=== PATIENT | male | born 1990 | race Caucasian/White ===

== ENCOUNTER 2017-04-20 15:50 | Emergency (ER) | payer SELFPAY ==
[2017-04-20 16:32] VITALS: BMI 23.2
[2017-04-20 16:36] VITALS: TEMP 98.2
--- NOTE | 2017-04-20 17:10 | C.PDOC ---
History Of Present Illness L CHEST PAIN X 2 WEEKS. INTERMIT NOW MORE INTENSE. NON EXERTIONAL, NO ASSOC SOB / CASTRO, DIZZY NV. QUIT SMOKING "MANY YEARS AGO" NO FEVER EXAM NEG Time Seen by Provider: 04/20/17 17:03 Chief Complaint (Nursing): Chest Pain History Per: Patient History/Exam Limitations: no limitations Onset/Duration Of Symptoms: Days (2 weeks) Current Symptoms Are (Timing): Still Present Past Medical History Reviewed: Historical Data, Nursing Documentation, Vital Signs Vital Signs: Last Vital Signs Temp 98.2 F 04/20/17 16:32 Pulse 71 04/20/17 16:32 Resp 20 04/20/17 16:32 BP 99/63 L 04/20/17 16:32 Pulse Ox 99 04/20/17 17:16 Family History: States: No Known Family Hx - Social History Hx Alcohol Use: No Hx Substance Use: No - Immunization History Hx Tetanus Toxoid Vaccination: No Hx Influenza Vaccination: No Hx Pneumococcal Vaccination: No Review Of Systems Except As Marked, All Systems Reviewed And Found Negative. Constitutional: Negative for: Fever Cardiovascular: Positive for: Chest Pain (left chest pain). Negative for: Palpitations Respiratory: Negative for: Shortness of Breath Neurological: Negative for: Weakness, Numbness Physical Exam - Physical Exam Appears: Non-toxic, No Acute Distress Skin: Warm, Dry, No Rash Oral Mucosa: Moist Lips: Normal Appearing Cardiovascular: Rhythm Regular, No Murmur Respiratory: Normal Breath Sounds, No Rales, No Rhonchi, No Stridor, No Wheezing Extremity: Normal ROM, No Swelling Neurological/Psych: Oriented x3, Normal Speech ED Course And Treatment ECG: Interpreted By Ca ECG Rhythm: Sinus Rhythm ECG Interpretation: Normal Rate From EC (BPM) O2 Sat by Pulse Oximetry: 99 (RA) Pulse Ox Interpretation: Normal - Radiology CXR: Interpreted by Ca CXR Interpretation: Yes: No Acute Disease Medical Decision Making Medical Decision Making: PLAN: * CXR * Flexeril PO * Motrin PO Disposition Counseled Patient/Family Regarding: Studies Performed, Diagnosis, Need For Followup, Rx Given - Disposition Referrals: [facility] [Outside] [facility] [Outside] Disposition: HOME/ ROUTINE Disposition Time: 17:38 Condition: IMPROVED Instructions: Noncardiac Chest Pain (ED) Forms: [employer] ([place]) - Clinical Impression Clinical Impression: Chest wall pain, chronic - Scribe Statement The provider has reviewed the documentation as recorded by the Scribe Cary Helm Provider Attestation: All medical record entries made by the Silkeibe were at my direction and personally dictated by me. I have reviewed the chart and agree that the record accurately reflects my personal performance of the history, physical exam, medical decision making, and the department course for this patient. I have also personally directed, reviewed, and agree with the discharge instructions and disposition.
--- NOTE | 2017-04-20 17:46 | RAD ---
HISTORY: L SIDED CP X 2 WKS COMPARISON: No prior. TECHNIQUE: Chest PA and lateral FINDINGS: LUNGS: No active pulmonary disease. PLEURA: No significant pleural effusion identified. No pneumothorax apparent. CARDIOVASCULAR: Normal. OSSEOUS STRUCTURES: No significant abnormalities. VISUALIZED UPPER ABDOMEN: Normal. OTHER FINDINGS: None. IMPRESSION: No active disease.
[2017-04-20 19:00] VITALS: BP 102/56; PULSE 78; RESP 16; O2SAT 98
== END 2017-04-20 18:18 | disposition home or self-care (01) ==
LOC: C.ER 15:50
DX: R07.89 Other chest pain (principal); G89.29 Other chronic pain